=== PATIENT | female | born 1960 | race Caucasian/White ===

== ENCOUNTER → 2016-11-27 | Outpatient (CLI) | payer BC | LOC: RAD 07:50 | PROVIDERS: ATTEND Family Medicine | DX: M54.5 Low back pain (principal); M48.06 Spinal stenosis, lumbar region | CPT/HCPCS: 72158; A9579 ==

== ENCOUNTER → 2017-01-29 | Outpatient (CLI) | payer BC ==
[~2017-01-29] MED LIST: CITA10TA4 PO; MTH750T GT; NAPR500T8 PO; OMEP10CA2 PO
--- NOTE | 2017-01-29 11:33 | Diagnostic Imaging Report ---
PROCEDURE: CT lumbar spine without contrast. TECHNIQUE: Multiple contiguous axial images were obtained through the lumbar spine without the use of intravenous contrast. Sagittal and coronal reformations were then performed. INDICATION: Chronic low back pain. History of previous fusion and laminectomy. Comparison with 08/18/2013. FINDINGS: There is fusion noted with bilateral pedicle screws and interconnecting rods from L3 through S1 bilaterally. No lucencies are seen that would indicate hardware loosening. No evidence of hardware failure. Interbody fusion L5-S1 with intervertebral disc graft in good position. No evidence of subsidence. Overall alignment is unchanged. There is mild retrolisthesis of L2 vertebral body on L3 with loss of disc space height. Hypertrophic lipping of the endplates present. Hypertrophic changes are seen of the facets at this level causing moderate stenosis. Ligamentous hypertrophy present as well. The minimal AP central canal dimension is approximately 6 mm. This is causing [id number] encroachment upon the lateral recesses and neural foramen bilaterally. L1-L2 level appears normal. IMPRESSION: 1. Fusion and laminectomy appears solid and unchanged. 2. Progressive degenerative disc disease as well as facet and ligamentous hypertrophy at L2-L3 which is causing [id number]-pi-sjuigo trefoil stenosis on the current study. Dictated by: Dictated on workstation # [id number]
== END ==
LOC: RAD 10:56
PROVIDERS: ATTEND Neurological Surgery
DX: M54.5 Low back pain (principal); M48.06 Spinal stenosis, lumbar region
CPT/HCPCS: 72131